=== PATIENT | female | born 1945 | race Caucasian/White ===

== ENCOUNTER → 2019-01-23 | Outpatient (CLI) | payer OTHER ==
[~2019-01-23] VITALS: Ht 157.5 cm; Wt 52.2 kg
[~2019-01-23] MED LIST: CYMBALTA30 MG PO; SYNTHROID100 MC1 PO; WELLBUTRIN SR150 MG PO
[2019-01-23 14:01] VITALS: BP 121/70
--- NOTE | 2019-01-23 14:18 | NUR ---
Pain Clinic Assessment: 1. History of Osteoarthritis: Right Upper Extremity hands History of Rheumatoid Arthritis: Not Applicable 2. Height: 5 ft. 2 in. 157.5 cm. Weight: 115.0 lb. oz. 52.164 kg. Patient's BMI: 21.0 3. Vital Signs: BP: 121/70 Pulse: 69 Resp: 14 Temp: 02 Sat: 97 ECG Mon: 4. Pain Intensity: 7 5. Fall Risk: Dizziness: N Needs help standing or walking: N Fallen in the last 3 months: N Fall risk comments: 6. Patient on Blood Thinner: None 7. History of Hypertension: N 8. Opioid Therapy greater than 6 weeks: N Opiate Contract Signed: 9. Risk Assessment Tool Provided: 10. Functional Assessment Tool: 11. Recreational Drug Use: Never Drug Type: Tobacco Use: Former Smoker Tobacco Type: Amount or Packs/day: How Many Years: Alcohol Use: Yes Frequency: Daily Quant: 1-2 wine
--- NOTE | 2019-01-25 15:29 | HPC ---
[facility] [address] [address] PAIN MANAGEMENT CONSULTATION Name: SARA BELL [id number] Admission: 01/23/19 ������������������ Attend Phys: Cruz Alvares MD Discharge: ������������������ Date of : 47 Report #: [id number] THIS REPORT FOR: //name// CC: WILTON Alvares DATE OF SERVICE: 01/23/2019 CHIEF COMPLAINT: Chronic neck pain with radiation into the right upper arm and occasional numbness into the forearm. The patient is a 73-year-old woman seen today at the request of Dr. Wilton Frederick. She has pain in her neck that she says she has had for years, but has recently worsened significantly. It is now described as a burning, shooting, stabbing pain that can be as high as an 8/10. She scores it as a 7/10 today. She has tried over the years acupuncture and exercises regularly, but is found no relief. She is reluctant to use medication beyond Tylenol or [id number] Aleve. MEDICATIONS: Buspirone and levothyroxine. ALLERGIES: None. PAST MEDICAL HISTORY: Remarkable for breast reduction, but otherwise she checks none of the boxes. She has been in excellent health. REVIEW OF SYSTEMS: Positive only for some hearing loss and a history of hypothyroidism. She otherwise reports that she has been in good general health. 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 She denies use of tobacco. Drinks alcohol in a social setting. PHYSICAL EXAMINATION: GENERAL: A pleasant 73-year-old looks younger than her stated age. VITAL SIGNS: Her blood pressure 121/70, heart rate 69 and respirations 14. Neck range of motion is excellent in all planes. EXTREMITIES: She has some increasing neck pain with radiation into the right neck and into the deltoid with lateral tilt and neck extension. Deep tendon reflexes are diminished at the biceps on the right in comparison to the left. Otherwise, reflexes are symmetrical and there is no hyperreflexia in the lower extremities. Strength is normal. Sensation is intact with no focal numbness. DIAGNOSTIC DATA: MRI scan is reviewed and showing a disk protrusion at C3-C4. There is also neural foraminal narrowing related to degenerative changes at multiple levels, particularly at C5-C6 and at C6-C7 to the right, which would be [address] [address] PAIN MANAGEMENT CONSULTATION Name: SARA BELL Raya Room #: REG [facility] Roberto#: [id number] Admission: 01/23/19 ������������������ Attend Phys: Cruz Alvares MD Discharge: ������������������ Date of : 47 Report #: [id number] consistent with her right-sided symptoms following that dermatome. There is some right eccentric protrusion of the central disk at C3-C4, but it is difficult to determine at this level whether it correlates well with her symptoms. IMPRESSION: Cervical radiculopathy into the right arm, level remains a bit of question. I would consider a C6 neural foraminal stenosis as a possibility, although the protruding disk at C3-C4 could play some role in the lateral recess. RECOMMENDATIONS: Cervical epidural injection under fluoroscopic guidance. Potential risks and benefits were reviewed and discussed the stage. With her lack of response, she would like to proceed with the injection. Will follow up in 2-4 weeks. PROCEDURE: She was taken to fluoroscopic suite for treatment where she was placed prone, skin was prepped with ChloraPrep. Skin anesthetized over the C6-C7 interspace. A 20-gauge Tuohy epidural needle advanced, first attempt into the epidural space, 1 mL of Omnipaque was injected. Good spread of dye observed to the left of midline, but then as we injected further spread to the right as well. Good cephalad spread of dye was noted up into the C3-C4 region. It was then followed by 3 mL of 0.5% lidocaine mixed with 80 mg of triamcinolone. She tolerated the procedure well and was observed in recovery room for about 45 minutes and discharged. Her pain score had diminished from 7 to 2 prior to discharge. Follow up in 1 month. ��������������������������������������������� <ELECTRONICALLY SIGNED> ���������������������������������������� By: Cruz Alvares MD ��������������������������������������������� 01/25/19 1529 [id number] Cruz Alvares MD /nt
== END | disposition home or self-care (01) ==
LOC: PAIN 01-09 13:40
DX: M54.12 Radiculopathy, cervical region (principal); G89.29 Other chronic pain; E03.9 Hypothyroidism, unspecified; Z98.890 Other specified postprocedural states; Z79.899 Other long term (current) drug therapy; Z87.891 Personal history of nicotine dependence

== ENCOUNTER → 2020-03-18 | Outpatient (CLI) | payer OTHER ==
[~2020-03-18] VITALS: Ht 162.6 cm; Wt 54.8 kg
[~2020-03-18] MED LIST changes: +IBU600 MG PO; +TRAMADOL 50 MG50 MG PO
--- NOTE | ~2020-03-18 | HPC ---
[facility] [address] [place] [address] PAIN MANAGEMENT CONSULTATION Name: SARA BELL Room #: REG QUYNHAtul Villarreal.#: [id number] Admission: 03/18/20 Attend Phys: Cruz Alvares MD Discharge: Date of : 47 Report #: [id number] THIS REPORT FOR: cc: Jen Frederick MD, Constance M. MD Morgan,Cruz Cuadra MD ~ CC: Jen Alvares DATE OF SERVICE: 03/18/2020 Followup visit for cervical radiculopathy. It has been 14 months since I last saw the patient. She received a cervical epidural steroid injection for right sided radicular symptoms and responded beautifully with almost a year of nearly complete pain relief. Over the last month or two, pain has started to return and she describes it now as intermittent burning, tingling sensation, is worse on the right. It is made worse by sleeping, gets worse as the day goes on. She is hopeful that we can repeat the injection, was so helpful previously. I reviewed her previous x-rays. We injected her at C6-C7. It was a cervical epidural injection. We discussed her presentation at that time and I reviewed it with today. It is almost identical. MEDICATIONS: Ibuprofen and tramadol t.i.d., which she is taking p.r.n. It is helpful. She uses it for sleep. Levothyroxine 100 mcg daily at 0700. ALLERGIES: None. PAST MEDICAL HISTORY: Essentially unremarkable. SOCIAL HISTORY: She denies use of tobacco, was a former smoker. She drinks 1-2 alcoholic beverages a day in a social setting. PHYSICAL EXAMINATION: GENERAL: She is a very delightful 75-year-old. As I mentioned 2 years ago, she appears spry and younger than her stated age. VITAL SIGNS: Her blood pressure is 127/61, heart rate 60, respirations 18. Her BMI is 20.7. O2 sat 100%, but on wearing masks. RESPIRATORY: She is breathing easily. Does not appear to have any dyspnea or shortness of breath. CARDIAC Rhythm is regular. NECK: The neck reveals some pain with flexion and extension. EXTREMITIES: No weakness is noted. Deep tendon reflexes are symmetrical and [facility] [address] [place] [address] PAIN MANAGEMENT CONSULTATION Name: SARA BELL Room #: REG [facility].#: [id number] Admission: 03/18/20 Attend Phys: Cruz Alvares MD Discharge: Date of : 47 Report #: [id number] 1-2+ in the lower and upper extremities. IMPRESSION: Chronic and recurring cervical radiculopathy. She had a wonderful response to single epidural injection 14 months ago. It is quite reasonable to repeat another injection today under fluoroscopic guidance. Potential benefits and risks reviewed. She would like to go forward. PROCEDURE: After informed consent, she was taken to fluoroscopic suite, placed prone, skin prepped with ChloraPrep. Skin anesthetized with 1% lidocaine. A 20-gauge Tuohy epidural needle advanced in first attempt in the epidural space with loss of resistance. There was no blood nor CSF aspirated. A 1.5 mL of Omnipaque was injected and excellent epidurogram was achieved. I followed it with 3 mL of 0.5% lidocaine mixed with 80 mg of triamcinolone. She tolerated the procedure well and was observed for 45 minutes and discharged. Followup visit planned in the pain clinic on an as needed basis. We do not recommend a series of injections, but have a number of patients who might receive benefit from another injection in 1-2 months down the line if the response has not been adequate. No medications were ordered on this visit. She will return to Dr. Frederick for additional pain medication. By: 1514 1831 Cruz Alvares MD /nt
[2020-03-18 14:27] VITALS: BP 127/61
--- NOTE | 2020-03-18 14:37 | NUR ---
Pain Clinic Assessment: 1. History of Osteoarthritis: Right Upper Extremity hands History of Rheumatoid Arthritis: Not Applicable 2. Height: 5 ft. 4 in. 162.6 cm. Weight: 120.8 lb. oz. 54.794 kg. Patient's BMI: 20.7 3. Vital Signs: BP: 127/61 Pulse: 60 Resp: 18 Temp: 02 Sat: 99 ECG Mon: 4. Pain Intensity: 5 5. Fall Risk: Dizziness: N Needs help standing or walking: N Fallen in the last 3 months: N Fall risk comments: 6. Patient on Blood Thinner: None 7. History of Hypertension: N 8. Opioid Therapy greater than 6 weeks: N Opiate Contract Signed: 9. Risk Assessment Tool Provided: 8-HIGH RISK 10. Functional Assessment Tool: 35 11. Recreational Drug Use: Never Drug Type: Tobacco Use: Former Smoker Tobacco Type: Amount or Packs/day: How Many Years: Alcohol Use: Yes Frequency: Daily Quant: 1-2 DRINKS/DAY
== END | disposition home or self-care (01) ==
LOC: PAIN 07:01
DX: M54.12 Radiculopathy, cervical region (principal); G89.29 Other chronic pain; Z98.890 Other specified postprocedural states; Z79.899 Other long term (current) drug therapy; Z87.891 Personal history of nicotine dependence